=== PATIENT | male | born 1995 | race Caucasian/White ===

== ENCOUNTER → 2016-11-04 | Outpatient (CLI) | payer OTHER ==
--- NOTE | 2016-11-04 14:36 | KCIC ---
PROCEDURE Single-view chest HISTORY Positive TB reaction COMPARISON None FINDINGS Single-view of the chest is submitted. There is no infiltrate, pleural fluid, pneumothorax. Heart size is considered within normal limits. Trachea is near the midline. IMPRESSION There is no evidence of acute cardiopulmonary disease, no radiographic findings suggestive of active tuberculosis. Electronically signed by: Jameel Dominguez MD (Nov 04, 2016 14:35:43)
== END | disposition home or self-care (01) ==
LOC: KCIC 13:39
PROVIDERS: ATTEND Family Medicine
DX: R76.11 Nonspecific reaction to tuberculin skin test without active tuberculosis (principal)
CPT/HCPCS: 71010